=== PATIENT | male | born 1960 | race Caucasian/White ===

== ENCOUNTER 2017-04-26 00:53 | Emergency (ER) | END 2017-04-26 11:32 | disposition home or self-care (01) ==

== ENCOUNTER 2018-12-09 11:02 | Emergency (ER) | payer SELFPAY ==
[~2018-12-09] VITALS: Ht 165.1 cm; Wt 77.1 kg
[~2018-12-09 11:02] MED LIST: ALBU18HF INHALATION; AMLO-147 PO; CEPH-443 PO; SULF1TAB31 PO
[2018-12-09 11:08] VITALS: BP 140/79; PULSE 110; RESP 20; Ht 165.1 cm; Wt 77.1 kg
== END 2018-12-09 14:58 | disposition left against medical advice (07) ==
LOC: E/R 11:02
DX: Z53.21 Procedure and treatment not carried out due to patient leaving prior to being seen by health care provider (principal)